=== PATIENT | male | born 1995 | race Caucasian/White ===

== ENCOUNTER → 2016-12-13 | Outpatient (CLI) | payer OTHER ==
--- NOTE | 2016-12-13 20:40 | CT ---
EXAMINATION TYPE: CT soft tissue neck w con DATE OF EXAM: 12/13/2016 COMPARISON: NONE HISTORY: Left sided neck and laryngeal numbness and pain x [address] DLP: 296.80 mGycm CONTRAST: CT scan of the neck is performed with IV Contrast, patient injected with enlarged lymph nodes total a pproximately 3 or 4 on the left and 2 on the right. 100 mL of Omnipaque 300. Contrast enhanced CT of the neck was performed from the skull base through the lung apices. AIRWAY: The supraglottic, glottic, and subglottic portions of the airway appear patent and free of mass. SALIVARY GLANDS: The submandibular and parotid glands are free of mass or inflammatory process. THYROID GLAND: No nodules or masses seen. LYMPH NODES: There is bilateral internal jugular chain adenopathy measuring 1.4 cm on the right and 1 .1 cm on the left. LUNG APICES: No nodule or mass is seen. OTHER: Vascular structures are patent. No significant degenerative change of the cervical spine. N o abscess seen. IMPRESSION: Mild bilateral internal jugular chain adenopathy may be reactive in nature. Correlate clinically.
== END | disposition home or self-care (01) ==
LOC: RADCTMAIN 19:31
PROVIDERS: ATTEND Otolaryngology
DX: R59.1 Generalized enlarged lymph nodes (principal)
CPT/HCPCS: 70491; Q9967

== ENCOUNTER → 2017-01-05 | Outpatient (CLI) | payer OTHER ==
--- NOTE | 2017-01-05 17:29 | US ---
EXAMINATION TYPE: US thyroid st tissue head/neck DATE OF EXAM: 01/05/2017 COMPARISON: CT 11/2016 CLINICAL HISTORY: R59.0 Localized enlarged lymph nodes. No palp per patient Normal appearing lymph nodes seen bilateral neck, with largest noted on the left = 1.1cm IMPRESSION: Exam was performed for the evaluation of lymph nodes in the neck. There are normal-appea ring cervical lymph nodes. No evidence of adenopathy.
== END | disposition home or self-care (01) ==
LOC: RADUSWWP 16:59
PROVIDERS: ATTEND Family Medicine
DX: R59.0 Localized enlarged lymph nodes (principal)
CPT/HCPCS: 76536

== ENCOUNTER 2020-08-08 21:17 | Emergency (ER) | payer OTHER ==
[2020-08-08 21:35] VITALS: BP 156/82; PULSE 105; RESP 20; TEMP 99.8
--- NOTE | 2020-08-08 22:27 | XR ---
EXAMINATION TYPE: XR wrist complete LT DATE OF EXAM: 08/08/2020 COMPARISON: NONE HISTORY: Wrist pain TECHNIQUE: 4 views FINDINGS: There is nondisplaced chip fracture of the ulnar styloid process. There is also intra-artic ular fracture of the distal radius on the medial aspect. There is no dislocation. Scaphoid appears in tact. The carpal bones appear intact. There is some soft tissue swelling around the carpus. IMPRESSION: Intra-articular fracture of the distal radius. Nondisplaced ulnar styloid process fractur e.
--- NOTE | 2020-08-08 22:34 | ED ---
Upper Extremity HPI - General Chief Complaint: Extremity Injury, Upper Stated Complaint: L Wrist Injury Time Seen by Provider: 08/08/20 21:36 Source: patient Mode of arrival: ambulatory Limitations: no limitations - History of Present Illness Initial Comments: 24-year-old male presents to emergency Department with a chief complaint of an injury. Patient reports this occurred about one hour prior to arrival while he was playing bascule. Patient reports a FOOSH on the left hand. Denies any numbness and tingling. Reports most of the pain is located along the medial aspect of the left hand. Reports some range of motion in the wrist due to pain. Denies taking medication to alleviate the symptoms. Does report mild swelling but no erythema with mild ecchymosis. - Related Data Allergies Allergy/AdvReac Type Severity Reaction Status Date / Time diphenhydramine Allergy Anaphylaxis Verified 08/08/20 21:35 [From Allison] Review of Systems ROS Statement: Those systems with pertinent positive or pertinent negative responses have been documented in the HPI. ROS Other: All systems not noted in ROS Statement are negative. Past Medical History Past Medical History: No Reported History History of Any Multi-Drug Resistant Organisms: None Reported Past Surgical History: Adenoidectomy Past Psychological History: Anxiety Smoking Status: Never smoker Past Alcohol Use History: Occasional Past Drug Use History: None Reported General Exam Limitations: no limitations General appearance: alert, in no apparent distress Head exam: Present: atraumatic, normocephalic, normal inspection Eye exam: Present: normal appearance, PERRL, EOMI Pupils: Present: normal accommodation ENT exam: Present: normal exam, normal oropharynx, mucous membranes moist, TM's normal bilaterally, normal external ear exam Neck exam: Present: normal inspection, full ROM. Absent: tenderness Respiratory exam: Present: normal lung sounds bilaterally. Absent: respiratory distress Cardiovascular Exam: Present: regular rate, normal rhythm, normal heart sounds GI/Abdominal exam: Present: soft. Absent: distended, tenderness, rebound Extremities exam: Present: normal inspection (Mild swelling of the left wrist), tenderness (Medial aspect of left wrist tenderness. No scaphoid tenderness), normal capillary refill, other (Probable ulnar radial pulses bilateral.). Absent: full ROM (Limited range of motion her left wrist due to pain), pedal edema, joint swelling Back exam: Present: normal inspection, full ROM. Absent: tenderness, CVA tenderness (R), CVA tenderness (L) Neurological exam: Present: alert, oriented X3, normal gait Psychiatric exam: Present: normal affect, normal mood Skin exam: Present: warm, dry, intact, normal color Course Vital Signs 08/08/20 21:32 Temperature 99.8 F H Pulse Rate 105 H Respiratory 20 Rate Blood Pressure 156/82 O2 Sat by Pulse 100 Oximetry Procedures - Orthopedic Splinting/Casting Injury #1 Side: left Upper Extremity Injury Location: wrist Upper Extremity Immobilizer: volar splint, Dani wrap, synthetic pre-padded splint Medical Decision Making - Medical Decision Making 44-year-old male presents to the emergency department with a chief complaint of wrist injury. On physical examination, patient is neurovascularly intact. Limited range of motion due to pain and mild swelling of the left wrist. X-ray reveals an intrathecal fracture of the left distal radius. Nondisplaced ulnar styloid fracture. Volar splint was applied. Patient was offered analgesia, he declined. Patient was advised to follow-up with freight rate specialist. 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 Strict return parameters were thoroughly discussed the patient was understanding and agreeable. Case discussed with physician. Disposition Clinical Impression: Wrist injury, Intra-articular fracture of distal end of radius with volar angulation, Fracture of styloid process of left ulna Disposition: HOME SELF-CARE Condition: Stable Instructions (If sedation given, give patient instructions): Wrist Fracture in Adults (ED) Additional Instructions: Follow-up with freight rate specialist. Return to emergency department if symptoms worsen. Is patient prescribed a controlled substance at d/c from ED?: No Referrals: Suzanne Mcclain MD [Primary Care Provider] - 1-2 days Time of Disposition: 23:12
== END 2020-08-08 23:10 | disposition home or self-care (01) ==
LOC: EC 21:17
DX: S52.572A Other intraarticular fracture of lower end of left radius, initial encounter for closed fracture (principal); S52.612A Displaced fracture of left ulna styloid process, initial encounter for closed fracture; F41.9 Anxiety disorder, unspecified; W01.0XXA Fall on same level from slipping, tripping and stumbling without subsequent striking against object, initial encounter
CPT/HCPCS: 99284